=== PATIENT | male | born 1985 | race Caucasian/White ===

== ENCOUNTER 2019-04-14 06:52 | Day surgery (SDC) | payer MEDICAID ==
[~2019-04-14] VITALS: Ht 180.3 cm; Wt 86.4 kg
[2019-04-14 06:55] VITALS: BP 107/59
[2019-04-14] MEDS ORDERED: OMEP20CA15 PO (07:04)
[2019-04-14] MEDS ORDERED: FAMO-128 PO (07:05)
[2019-04-14] MEDS ORDERED: MIDAZolam 5mg/5ml vial ONE (07:10)
[2019-04-14] MEDS ORDERED: fentaNYL/PF 50MCG/1 ML 2ML syringe ONE ×2 (07:10→08:07)
[2019-04-14] MEDS ORDERED: LIDOcaine Viscous 15ml cup ONE (07:10)
[2019-04-14 08:49] VITALS: BP 103/71
[2019-04-14 08:58] VITALS: BP 120/71
[2019-04-14 09:08] VITALS: BP 108/65
[2019-04-14 09:18] VITALS: BP 118/62
[2019-04-14 09:28] VITALS: BP 116/71
== END 2019-04-14 09:40 | disposition home or self-care (01) ==
LOC: GI LAB 06:52
PROVIDERS: ATTEND Internal Medicine Gastroenterology
DX: R10.30 Lower abdominal pain, unspecified (principal); R10.13 Epigastric pain; R12 Heartburn; K21.9 Gastro-esophageal reflux disease without esophagitis
CPT/HCPCS: 43239; 45378; 99152; 99153; J2250; J3010; J7040; A4620